=== PATIENT | male | born 1965 | race Two or more races ===

== ENCOUNTER → 2018-08-29 | Outpatient (CLI) | payer OTHER ==
[~2018-08-29] MED LIST: LEVAQUIN500 MG PO; NO TOMA MEDICAMENTOS; PREDNISONE20 MG PO
== END | disposition home or self-care (01) ==
LOC: SONOGRAMA 07:26
DX: E04.1 Nontoxic single thyroid nodule (principal)

== ENCOUNTER 2019-08-22 08:11 | Emergency (ER) | payer OTHER ==
[~2019-08-22] VITALS: Ht 172.7 cm; Wt 69.9 kg
[2019-08-23] MEDS ORDERED: PANTOPRAZOLE SO40 MG (21:23)
[2019-08-23] MEDS ORDERED: ONDANSETRON 4 MG (21:23)
== END 2019-08-22 16:20 | disposition home or self-care (01) ==
LOC: ER 08:11
DX: R10.84 Generalized abdominal pain (principal)

== ENCOUNTER 2019-08-23 20:12 | Inpatient (IN) | payer OTHER ==
[~2019-08-23] VITALS: Ht 274.3 cm; Wt 69.9 kg
[2019-08-23] MEDS ORDERED: ONDANSETRON 4 MG (21:23)
[2019-08-23] MEDS ORDERED: PANTOPRAZOLE SO40 MG (21:23)
== END 2019-08-25 00:28 | disposition expired | DRG 388 ==
LOC: ER 20:12 → MEDJ 08-24 09:31 → SEC-K 08-24 09:31 → MEDJ 08-24 10:11
PROVIDERS: ADMIT Surgery; ATTEND Surgery
PROC: 4A033R1 Measurement of Arterial Saturation, Peripheral, Percutaneous Approach (ICD-10-PCS; principal; 2019-08-24)
PROC: 8E0ZXY6 Isolation (ICD-10-PCS; 2019-08-24)
PROC: 0BH17EZ Insertion of Endotracheal Airway into Trachea, Via Natural or Artificial Opening (ICD-10-PCS; 2019-08-24)
PROC: 5A1935Z Respiratory Ventilation, Less than 24 Consecutive Hours (ICD-10-PCS; 2019-08-24)
PROC: 4A12X4Z Monitoring of Cardiac Electrical Activity, External Approach (ICD-10-PCS; 2019-08-24)
DX: K56.600 Partial intestinal obstruction, unspecified as to cause (principal); J12.9 Viral pneumonia, unspecified; J96.01 Acute respiratory failure with hypoxia; G71.00 Muscular dystrophy, unspecified; Z03.818 Encounter for observation for suspected exposure to other biological agents ruled out